=== PATIENT | female | born 1980 | race American Indian/Alaskan Native ===

== ENCOUNTER 2017-05-24 15:39 | Emergency (ER) | payer MEDICAID ==
[2017-05-24] MEDS ORDERED: KEPPRA 1,000 MG in D5W 100 ML IV ONE (16:52)
[2017-05-24] MEDS ORDERED: REGLAN IV ONE (16:52)
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
[2017-05-24 17:13] LABS: Basophils % (Auto) 0.4 % (0.0-1.8); Eosinophils % (Auto) 1.2 % (0.0-4.3); Hematocrit 32.5 % (30.3-42.9); Hemoglobin 11.1 gm/dl (10.1-14.3); Mean Corpuscular HGB Conc 34 % (30-34); Mean Corpuscular Hemoglobin 34 pg (28-32); Mean Corpuscular Volume 100 fl (79-97); Platelet Count 191 K/mm3 (140-440); Red Blood Count 3.27 M/mm3 (3.65-5.03); Red Cell Distribution Width 15.1 % (13.2-15.2)
[2017-05-24 17:19] LABS: Anion Gap 15 mmol/L; Blood Urea Nitrogen 9 mg/dL (7-17); Calcium 8.2 mg/dL (8.4-10.2); Carbon Dioxide 25 mmol/L (22-30); Chloride 101.8 mmol/L (98-107); Glucose 92 mg/dL (65-100); Potassium 3.6 mmol/L (3.6-5.0); Sodium 138 mmol/L (137-145)
[2017-05-24 17:23] LABS: Magnesium 1.7 mg/dL (1.7-2.3)
[2017-05-24] MEDS ORDERED: KEPPRA 1,000 MG/NS 0.75% 100ML 1,000 MG/100 ML BAG IV ONE (17:25)
--- NOTE | 2017-05-24 18:37 | Cat Scan Report ---
FINAL REPORT EXAM: CT HEAD/BRAIN WO CON HISTORY: sz vs syncope TECHNIQUE: CT head without contrast PRIORS: None. FINDINGS: No acute intra-axial or extra-axial hemorrhage is identified. There is no evidence of midline shift or mass effect. The ventricles and sulci are within normal limits. Mares-white matter differentiation is intact. No acute parenchymal abnormalities seen. Bony calvarium is grossly intact. Visualized portions of the mastoids and paranasal sinuses are unremarkable. IMPRESSION: Negative CT head
[2017-05-24 19:12] LABS: Urine Drugs of Abuse Note Disclamer
[2017-05-24 19:25] LABS: Bilirubin,Urine NEG (Negative); Blood,Urine SM (Negative); Ketones,Urine NEG (Negative); Leukocyte Esterase,Urine TR (Negative); Mucus,Urine FEW /HPF; Nitrite,Urine NEG (Negative); Protein,Urine <15 mg/dL mg/dL (Negative)
[2017-05-24 20:08] VITALS: BP 104/58
--- NOTE | 2017-05-25 07:51 | XRay Report ---
AP CHEST: HISTORY: Seizure, syncope AP view of the chest demonstrates a normal mediastinal and cardiac contour with clear lungs and normal bony and soft tissue structures. IMPRESSION: Unremarkable AP chest.
== END 2017-05-24 20:13 | disposition home or self-care (01) ==
LOC: ED 15:39
DX: R56.9 Unspecified convulsions (principal); F32.9 Major depressive disorder, single episode, unspecified; J45.909 Unspecified asthma, uncomplicated; D64.9 Anemia, unspecified; I10 Essential (primary) hypertension; Z72.0 Tobacco use; Z79.82 Long term (current) use of aspirin; Z88.0 Allergy status to penicillin; Z88.6 Allergy status to analgesic agent
CPT/HCPCS: 36415; 51701; 70450; 71010; 80048; 80307; 81001; 82550; 83735; 84702; 85025; 93005; 93010; 96365; 96375; 99285; G0480; J1953; J2765; 80320

== ENCOUNTER 2017-05-31 17:00 | Emergency (ER) | payer MEDICAID | END 2017-05-31 17:40 | disposition left against medical advice (07) | LOC: ED 17:00 | DX: R55 Syncope and collapse (principal); Z53.21 Procedure and treatment not carried out due to patient leaving prior to being seen by health care provider ==

== ENCOUNTER 2017-06-21 15:12 | Emergency (ER) | payer MEDICAID ==
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
[2017-06-21 16:37] LABS: Basophils % (Auto) 0.5 % (0.0-1.8); Eosinophils % (Auto) 0.6 % (0.0-4.3); Hematocrit 35.8 % (30.3-42.9); Hemoglobin 11.9 gm/dl (10.1-14.3); Mean Corpuscular HGB Conc 33 % (30-34); Mean Corpuscular Hemoglobin 33 pg (28-32); Mean Corpuscular Volume 99 fl (79-97); Platelet Count 207 K/mm3 (140-440); Red Cell Distribution Width 15.3 % (13.2-15.2); White Blood Count 3.1 K/mm3 (4.5-11.0)
[2017-06-21 16:47] LABS: INR 1.06 (0.87-1.13)
[2017-06-21 16:48] LABS: Partial Thromboplastin Time 33.2 Sec. (24.2-36.6)
[2017-06-21 17:02] LABS: Alanine Aminotransferase 19 units/L (7-56); Albumin 3.9 g/dL (3.9-5); Albumin/Globulin Ratio 0.8 %; Alkaline Phosphatase 60 units/L (35-129); Anion Gap 18 mmol/L; Blood Urea Nitrogen 8 mg/dL (7-17); Calcium 8.6 mg/dL (8.4-10.2); Carbon Dioxide 24 mmol/L (22-30); Chloride 101.8 mmol/L (98-107); Glucose 120 mg/dL (65-100); Potassium 3.1 mmol/L (3.6-5.0); Sodium 141 mmol/L (137-145); Total Protein 8.7 g/dL (6.3-8.2)
--- NOTE | 2017-06-21 17:49 | Emergency Department Report ---
ED Chest Pain HPI - General Chief Complaint: Syncope Stated Complaint: DIZZY Time Seen by Provider: 06/21/17 15:34 Source: EMS Mode of arrival: Ambulatory Limitations: No Limitations - History of Present Illness MD Complaint: chest pain -: Gradual Onset: during rest, during exertion Pain Location: substernal, right chest Pain Radiation: none Severity: mild Severity scale (0 -10): 2 Quality: tightness, aching, heaviness Consistency: intermittent Improves With: nothing Worsens With: nothing re: nausea. denies: vomting, diaphoresis, dyspnea, sense of impending doom Other Symptoms: denies: cough, fever, syncope, rash, acid taste in mouth, leg swelling, palpitations, burping Aspirin use within the Past 7 Days: (0) No - Related Data On Oral Contraceptives: No Home Medications Medication Instructions Recorded Confirmed Last Taken ALBUTEROL Inhaler [ProAir HFA 2 puff IH QID PRN 04/15/16 06/21/17 Unknown Inhaler] Previous Rx's Medication Instructions Recorded Last Taken Type levETIRAcetam [Keppra TAB] 1,000 mg PO BID #60 tab 05/24/17 06/21/17 Rx Allergies Allergy/AdvReac Type Severity Reaction Status Date / Time aspirin Allergy Hives Verified 12/18/16 11:29 ibuprofen [From Motrin] Allergy Hives Verified 05/01/16 11:00 Penicillins Allergy Hives Verified 06/20/15 11:34 Heart Score - HEART Score History: Slightly suspicious EKG: Normal Age: < 45 Risk factors: No known risk factors Troponin: < normal limit HEART Score: 0 ED Review of Systems ROS: Stated complaint: DIZZY Other details as noted in HPI Comment: All other systems reviewed and negative ED Past Medical Hx - Past Medical History Previous Medical History?: Yes Hx Hypertension: Yes Hx Diabetes: No Hx Headaches / Migraines: Yes Hx Seizures: Yes Hx Psychiatric Treatment: Yes (depression) Hx Asthma: Yes Additional medical history: Anemia - Surgical History Past Surgical History?: Yes Additional Surgical History: right knee surgery, b/l foot surgery several years ago. foot surgery 12/2015 - Social History Smoking Status: Current Every Day Smoker Substance Use Type: Prescribed - Medications Home Medications: Home Medications Medication Instructions Recorded Confirmed Last Taken Type ALBUTEROL Inhaler [ProAir HFA 2 puff IH QID PRN 04/15/16 06/21/17 Unknown History Inhaler] levETIRAcetam [Keppra TAB] 1,000 mg PO BID #60 tab 05/24/17 06/21/17 06/21/17 Rx ED Physical Exam - General Limitations: No Limitations General appearance: alert, in no apparent distress - Head Head exam: Present: atraumatic, normocephalic - Eye Eye exam: Present: normal appearance, PERRL, EOMI - ENT ENT exam: Present: normal exam, normal orophraynx, mucous membranes moist - Neck Neck exam: Present: normal inspection - Respiratory Respiratory exam: Present: normal lung sounds bilaterally. Absent: respiratory distress - Cardiovascular Cardiovascular Exam: Present: regular rate, normal rhythm. Absent: systolic murmur, diastolic murmur, rubs, gallop - GI/Abdominal GI/Abdominal exam: Present: soft, normal bowel sounds - Extremities Exam Extremities exam: Present: normal inspection - Back Exam Back exam: Present: normal inspection - Neurological Exam Neurological exam: Present: alert, oriented X3 - Psychiatric Psychiatric exam: Present: normal affect, normal mood - Skin Skin exam: Present: warm, dry, intact, normal color. Absent: rash ED Course Vital Signs 06/21/17 06/21/17 06/21/17 15:25 17:50 18:28 Temperature 98.4 F 98 F Pulse Rate 68 84 74 Respiratory 18 20 14 Rate Blood Pressure 153/113 Blood Pressure 132/84 121/73 [Left] O2 Sat by Pulse 100 100 98 Oximetry LATRICE score - Latrice Score Age > 65: (0) No Aspirin use within the Past 7 Days: (0) No 3 or more CAD Risk Factors: (0) No 2 or more Angina events in past 24 hrs: (0) No Known CAD with more than 50% Stenosis: (0) No Elevated Cardiac Markers: (0) No ST Deviation Greater than 0.5mm: (0) No LATRICE Score: 0 ED Medical Decision Making - Lab Data Result diagrams: 06/21/17 16:21 06/21/17 16:21 - EKG Data -: EKG Interpreted by Me EKG shows normal: sinus rhythm - EKG Data When compared to previous EKG there are: no significant change Interpretation: no acute changes - Radiology Data Radiology results: report reviewed, image reviewed - Medical Decision Making patient doing well, labs neg, likely dc Critical care attestation.: If time is entered above; I have spent that time in minutes in the direct care of this critically ill patient, excluding procedure time. ED Disposition Clinical Impression: Headache, Dizziness Disposition: DC-01 TO HOME OR SELFCARE Is pt being admited?: No Does the pt Need Aspirin: No Condition: Good Referrals: PRIMARY CARE, [Primary Care Provider] - 3-5 Days Time of Disposition: 19:21
--- NOTE | 2017-06-21 18:16 | Cat Scan Report ---
FINAL REPORT PROCEDURE: CT HEAD/BRAIN WO CON TECHNIQUE: Computerized tomography of the head was performed without contrast material. HISTORY: Syncope COMPARISON: Prior CT scan of the brain 05/24/2017 FINDINGS: Brain: Brain density appears normal. No evidence of intracranial hemorrhage. No parenchymal hemorrhage, mass lesions or mass effect are seen. No abnormal extraxial fluid collects or masses are seen. Ventricles: Ventricles are normal size and are midline. Bone Windows: No evidence of skull fracture. Paranasal sinuses: Clear Mastoid air cells: Clear IMPRESSION: Negative examination
[2017-06-21] MEDS ORDERED: ZOFRAN ODT ONE (18:32)
[2017-06-21] MEDS ORDERED: TORADOL ONE (18:32)
[2017-06-21] MEDS ORDERED: ULTRAM ONE (18:35)
[2017-06-21] MEDS ORDERED: ZOFRAN ODT PO ONE (18:39)
[2017-06-21] MEDS ORDERED: ULTRAM PO ONE (18:39)
[2017-06-21 20:03] VITALS: BP 113/79
--- NOTE | 2017-06-22 08:19 | XRay Report ---
CHEST 2 VIEWS INDICATION: Syncope. COMPARISON: 05/24/2017 FINDINGS: PA and lateral chest radiographs demonstrate stable cardiomediastinal silhouette without pleural effusions or CHF. Slight bibasilar crowding/prominence of lung markings, possibly atelectatic versus scarring. Slight thoracic spine degenerative spurring. CONCLUSION: No significant acute chest process or interval change, as described. Thank you for the opportunity to participate in this patient's care.
== END 2017-06-21 19:50 | disposition home or self-care (01) ==
LOC: ED 15:12
DX: R51 Headache (principal); R42 Dizziness and giddiness; I10 Essential (primary) hypertension; R56.9 Unspecified convulsions; F32.9 Major depressive disorder, single episode, unspecified; D64.9 Anemia, unspecified; F17.200 Nicotine dependence, unspecified, uncomplicated; J45.909 Unspecified asthma, uncomplicated; Z88.6 Allergy status to analgesic agent; Z88.0 Allergy status to penicillin
CPT/HCPCS: 36415; 70450; 71020; 80053; 84484; 84703; 85025; 85610; 85730; 93005; 93010; J1885; Q0162

== ENCOUNTER 2017-07-17 14:38 | Emergency (ER) | payer MEDICAID ==
[2017-07-17 15:19] VITALS: BP 135/113
[2017-07-17 16:04] LABS: Anion Gap 17 mmol/L; BUN/Creatinine Ratio 18.33; Blood Urea Nitrogen 11 mg/dL (7-17); Calcium 8.4 mg/dL (8.4-10.2); Carbon Dioxide 21 mmol/L (22-30); Chloride 104.1 mmol/L (98-107); Glucose 92 mg/dL (65-100); Potassium 3.6 mmol/L (3.6-5.0); Sodium 138 mmol/L (137-145)
[2017-07-17 16:09] LABS: Eosinophils % (Auto) 2.1 % (0.0-4.3); Hematocrit 34.4 % (30.3-42.9); Hemoglobin 11.8 gm/dl (10.1-14.3); Mean Corpuscular HGB Conc 34 % (30-34); Mean Corpuscular Hemoglobin 33 pg (28-32); Mean Corpuscular Volume 97 fl (79-97); Platelet Count 203 K/mm3 (140-440); Red Blood Count 3.54 M/mm3 (3.65-5.03); Red Cell Distribution Width 14.6 % (13.2-15.2); White Blood Count 3.8 K/mm3 (4.5-11.0)
== END 2017-07-17 19:30 | disposition left against medical advice (07) ==
LOC: ED 14:38
DX: R55 Syncope and collapse (principal); Z53.21 Procedure and treatment not carried out due to patient leaving prior to being seen by health care provider
CPT/HCPCS: 36415; 80048; 84484; 85025; 93005; 93010

== ENCOUNTER 2017-09-30 10:33 | Emergency (ER) | payer MEDICAID ==
--- NOTE | 2017-09-30 11:41 | Emergency Department Report ---
ED General Adult HPI - General Chief complaint: Back Pain/Injury Stated complaint: BACK PAIN AND SHOULDER PAIN Time Seen by Provider: 09/30/17 11:06 Source: patient Mode of arrival: Ambulatory Limitations: No Limitations - History of Present Illness Initial comments: PT c/o neck pain x 4 days. PT states she can not turn her neck. PT states the pain radiates down to her low back. PT states she is allergic to ibuprofen but she has been taking Motrin and Aleve for this with no improvement or allergic reaction. PT denies injury or trauma. Pt states she has had cough and subjective fever and chill. when reviewed PMH - pt denies HIV PT states she has PCP- Dr Pantoja, states she has had full labs in the last month PT was looked up in [facility] Database. PT has multiple fills of Percocet 10 mg and Soma. PT not forthcoming with this. PT states her neurologist had her on Soma and Percocet for her headaches but she is no longer under care due to neurologist . MD Complaint: body pain -: Gradual, days(s) Severity scale (0 -10): 10 Quality: burning, aching Consistency: constant Improves with: none Worsens with: movement Associated Symptoms: cough, fever/chills, nausea/vomiting. denies: chest pain Treatments Prior to Arrival: NSAID - Related Data Home Medications Medication Instructions Recorded Confirmed Last Taken ALBUTEROL Inhaler [ProAir HFA 2 puff IH QID PRN 04/15/16 06/23/17 06/23/17 Inhaler] Previous Rx's Medication Instructions Recorded Last Taken Type levETIRAcetam [Keppra TAB] 1,000 mg PO BID #60 tab 05/24/17 06/23/17 Rx Allergies Allergy/AdvReac Type Severity Reaction Status Date / Time aspirin Allergy Hives Verified 06/23/17 11:00 ibuprofen [From Motrin] Allergy Hives Verified 06/23/17 11:00 Penicillins Allergy Hives Verified 06/23/17 11:00 ED Review of Systems ROS: Stated complaint: BACK PAIN AND SHOULDER PAIN Other details as noted in HPI Comment: All other systems reviewed and negative Constitutional: chills, fever (subjective ), malaise ENT: denies: congestion Respiratory: cough Cardiovascular: denies: chest pain Gastrointestinal: nausea. denies: abdominal pain, vomiting Musculoskeletal: back pain, myalgia ED Past Medical Hx - Past Medical History Hx Hypertension: Yes Hx Diabetes: No Hx Headaches / Migraines: Yes Hx Seizures: Yes Hx Psychiatric Treatment: Yes (depression) Hx Asthma: Yes Hx HIV: Yes (PT denies 09-30-17 ) Additional medical history: Anemia - Surgical History Additional Surgical History: right knee surgery, b/l foot surgery several years ago. foot surgery 12/2015 - Social History Smoking Status: Current Every Day Smoker Substance Use Type: None - Medications Home Medications: Home Medications Medication Instructions Recorded Confirmed Last Taken Type ALBUTEROL Inhaler [ProAir HFA 2 puff IH QID PRN 04/15/16 06/23/17 06/23/17 History Inhaler] levETIRAcetam [Keppra TAB] 1,000 mg PO BID #60 tab 05/24/17 06/23/17 06/23/17 Rx ED Physical Exam - General Limitations: No Limitations General appearance: alert, in no apparent distress - Head Head exam: Present: atraumatic, normocephalic, normal inspection - Eye Eye exam: Present: normal appearance, PERRL, EOMI - ENT ENT exam: Present: normal orophraynx, mucous membranes moist, normal external ear exam, other - Neck Neck exam: Present: normal inspection, full ROM, other (decreased lateral rotation ). Absent: lymphadenopathy - Respiratory Respiratory exam: Present: normal lung sounds bilaterally, respiratory distress. Absent: wheezes, rales, rhonchi, chest wall tenderness - Cardiovascular Cardiovascular Exam: Present: regular rate, normal rhythm, normal heart sounds - GI/Abdominal GI/Abdominal exam: Present: soft. Absent: tenderness, guarding, rebound - Extremities Exam Extremities exam: Present: normal inspection, full ROM - Back Exam Back exam: Present: normal inspection, full ROM, tenderness, muscle spasm, paraspinal tenderness, other (pt reports back tenderness from nape of neck to lumbar spine ). Absent: CVA tenderness (R), CVA tenderness (L), vertebral tenderness - Neurological Exam Neurological exam: Present: alert, oriented X3, normal gait - Psychiatric Psychiatric exam: Present: normal affect, normal mood - Skin Skin exam: Present: warm, dry, intact, normal color ED Course Vital Signs 09/30/17 09/30/17 10:42 14:55 Temperature 98.2 F 98.6 F Pulse Rate 98 H 87 Respiratory 18 16 Rate Blood Pressure 98/53 Blood Pressure 91/43 [Right] O2 Sat by Pulse 98 100 Oximetry - Reevaluation(s) Reevaluation #1: 09/30/17 11:51 PT not in room. Reevaluation #2: 09/30/17 16:26 Pt's lab work compete at this time. Told by nursing staff that pt eloped. - Pulse Oximetry Interpretation Digit-Finger Initial Pulse Oximetry Readin Actions Taken: none ED Medical Decision Making - Lab Data Result diagrams: 09/30/17 11:54 09/30/17 11:54 Labs 09/30/17 09/30/17 09/30/17 11:54 11:54 11:54 WBC 3.8 L RBC 3.01 L Hgb 10.3 Hct 30.3 MCV 101 H MCH 34 H MCHC 34 RDW 15.4 H Plt Count 163 Lymph % (Auto) 21.5 [place] % (Auto) 14.5 H Eos % (Auto) 2.3 Baso % (Auto) 0.6 Lymph # 0.8 L [place] # 0.5 Eos # 0.1 Baso # 0.0 Seg Neutrophils % 61.1 Seg Neutrophils # 2.3 Sodium 136 L Potassium 4.6 Chloride 104.7 Carbon Dioxide 20 L Anion Gap 16 BUN 27 H Creatinine 1.1 Estimated GFR > 60 BUN/Creatinine Ratio 25 Glucose 86 Calcium 7.7 L Total Bilirubin 0.60 AST 24 ALT 21 Alkaline Phosphatase 73 Total Creatine Kinase Total Protein 7.7 Albumin 3.7 L Albumin/Globulin Ratio 0.9 HCG, Qual Negative Urine Color Urine Turbidity Urine pH Ur Specific [place] Urine Protein Urine Glucose (UA) Urine Ketones Urine Blood Urine Nitrite Urine Bilirubin Urine Urobilinogen Ur Leukocyte Esterase Urine WBC (Auto) Urine RBC (Auto) U Epithel Cells (Auto) Urine Bacteria (Auto) 09/30/17 09/30/17 12:00 15:26 WBC RBC Hgb Hct MCV MCH MCHC RDW Plt Count Lymph % (Auto) [place] % (Auto) Eos % (Auto) Baso % (Auto) Lymph # [place] # Eos # Baso # Seg Neutrophils % Seg Neutrophils # Sodium Potassium Chloride Carbon Dioxide Anion Gap BUN Creatinine Estimated GFR BUN/Creatinine Ratio Glucose Calcium Total Bilirubin AST ALT Alkaline Phosphatase Total Creatine Kinase 215 H Total Protein Albumin Albumin/Globulin Ratio HCG, Qual Urine Color Yellow Urine Turbidity Clear Urine pH 5.0 Ur Specific [place] 1.012 Urine Protein <15 mg/dl Urine Glucose (UA) Neg Urine Ketones Neg Urine Blood Neg Urine Nitrite Neg Urine Bilirubin Neg Urine Urobilinogen 2.0 Ur Leukocyte Esterase Neg Urine WBC (Auto) 2.0 Urine RBC (Auto) 1.0 U Epithel Cells (Auto) 3.0 Urine Bacteria (Auto) 1+ - Differential Diagnosis rhabo, hypokalemia, uri, uti, Critical Care Time: No Critical care attestation.: If time is entered above; I have spent that time in minutes in the direct care of this critically ill patient, excluding procedure time. ED Disposition Clinical Impression: Myalgia Disposition: [facility] Is pt being admited?: No Does the pt Need Aspirin: No Condition: Stable Referrals: PRIMARY CARE, [Primary Care Provider] - 3-5 Days Time of Disposition: 16:29
[2017-09-30 12:10] LABS: Basophils % (Auto) 0.6 % (0.0-1.8); Eosinophils % (Auto) 2.3 % (0.0-4.3); Hematocrit 30.3 % (30.3-42.9); Hemoglobin 10.3 gm/dl (10.1-14.3); Mean Corpuscular HGB Conc 34 % (30-34); Mean Corpuscular Hemoglobin 34 pg (28-32); Mean Corpuscular Volume 101 fl (79-97); Platelet Count 163 K/mm3 (140-440); Red Blood Count 3.01 M/mm3 (3.65-5.03); Red Cell Distribution Width 15.4 % (13.2-15.2); White Blood Count 3.8 K/mm3 (4.5-11.0)
[2017-09-30 12:26] LABS: Alanine Aminotransferase 21 units/L (7-56); Albumin 3.7 g/dL (3.9-5); Albumin/Globulin Ratio 0.9 %; Alkaline Phosphatase 73 units/L (35-129); Anion Gap 16 mmol/L; BUN/Creatinine Ratio 25; Blood Urea Nitrogen 27 mg/dL (7-17); Calcium 7.7 mg/dL (8.4-10.2); Carbon Dioxide 20 mmol/L (22-30); Chloride 104.7 mmol/L (98-107); Glucose 86 mg/dL (65-100); Potassium 4.6 mmol/L (3.6-5.0); Sodium 136 mmol/L (137-145); Total Protein 7.7 g/dL (6.3-8.2)
[2017-09-30 14:58] VITALS: BP 91/43
[2017-09-30 15:54] LABS: Bacteria,Urine 1+ /HPF (Negative); Bilirubin,Urine NEG (Negative); Blood,Urine NEG (Negative); Ketones,Urine NEG (Negative); Leukocyte Esterase,Urine NEG (Negative); Nitrite,Urine NEG (Negative); Protein,Urine <15 mg/dL mg/dL (Negative)
== END 2017-09-30 16:24 | disposition left against medical advice (07) ==
LOC: ED 10:33
DX: R05 Cough (principal); R11.2 Nausea with vomiting, unspecified; M79.1 Myalgia; I10 Essential (primary) hypertension; G43.909 Migraine, unspecified, not intractable, without status migrainosus; F17.200 Nicotine dependence, unspecified, uncomplicated; Z88.6 Allergy status to analgesic agent; Z88.0 Allergy status to penicillin
CPT/HCPCS: 36415; 80053; 81001; 82550; 84703; 85025; 99283

== ENCOUNTER 2017-10-13 12:20 | Emergency (ER) | payer MEDICAID ==
[2017-10-13] MEDS ORDERED: NITROSTAT SL ONE (12:53)
--- NOTE | 2017-10-13 12:53 | Emergency Department Report ---
Chief Complaint: Chest Pain Stated Complaint: CP Time Seen by Provider: 10/13/17 12:50 - HPI History of Present Illness: Patient is a 37-year-old [place] female who has a history of hypertension morbidly obese was presenting with chest pain. Patient states for the past 3 days she has been having chest pressure center chest with radiation to left arm. This pain was coming and going, initially but has been present constantly since this morning. Patient arrived via ambulance. The patient's EKG was reviewed here or Department does not show a STEMI however patient is having pain that is worrisome. Patient states that she has shortness of breath accompanying her chest pain. Denies any cough nausea vomiting diarrhea at this time. Patient states that she has no history of smoking diabetes. Patient has not seen a health care specialist in the last several years. - Exam Vital Signs: Vital Signs 10/13/17 12:25 Temperature 99.3 F Pulse Rate 99 H Respiratory 16 Rate Blood Pressure 138/89 O2 Sat by Pulse 99 Oximetry Physical Exam: Focused physical exam patient's heart mildly tachycardic S1-S2 no murmurs gallops or rubs lungs clear to auscultation bilaterally abdomen is soft nontender obese with normal bowel sounds general exam patient is alert and oriented in no acute distress MSE screening note: Focused history and physical exam performed. Due to findings the following was ordered: ED cardiac order set has been ordered we omitted aspirin as she is allergic to this medication. Patient moved to the main ED for further care ED Disposition for MSE Condition: Stable Referrals: PERLITA CHOW MD [Primary Care Provider] - 3-5 Days
[2017-10-13] MEDS ORDERED: XOPENEX IH ONE (13:12)
[2017-10-13] MEDS ORDERED: ATROVENT IH ONE (13:12)
--- NOTE | 2017-10-13 13:17 | Emergency Department Report ---
ED Chest Pain HPI - General Chief Complaint: Chest Pain Stated Complaint: CP Time Seen by Provider: 10/13/17 12:50 Source: patient Mode of arrival: Stretcher Limitations: No Limitations - History of Present Illness Initial Comments: Patient is 37 years old female morbidly obese history of hypertension, asthma and bipolar disorder presented to the ER with left-sided chest pain for the last 3 days on and off associated with shortness of breath. Patient denied any nausea or vomiting, no fever. Patient was admitted here recently for chest pain , stress test was completely negative. MD Complaint: chest pain -: days(s) Onset: during rest, during exertion Pain Location: left chest Severity scale (0 -10): 10 Quality: tightness, pressure - Related Data Home Medications Medication Instructions Recorded Confirmed Last Taken ALBUTEROL Inhaler [ProAir HFA 2 puff IH QID PRN 04/15/16 06/23/17 06/23/17 Inhaler] Previous Rx's Medication Instructions Recorded Last Taken Type levETIRAcetam [Keppra TAB] 1,000 mg PO BID #60 tab 05/24/17 06/23/17 Rx Ondansetron [Zofran Odt] 4 mg PO Q8HR PRN #14 tab.rapdis 10/13/17 Unknown Rx Prednisone [predniSONE 10 mg 10 mg PO .TAPER #1 tab.ds.pk 10/13/17 Unknown Rx (6-Day Pack, 21 Tabs)] traMADol [Ultram] 50 mg PO Q6HR PRN #14 tablet 10/13/17 Unknown Rx Allergies Allergy/AdvReac Type Severity Reaction Status Date / Time aspirin Allergy Hives Verified 06/23/17 11:00 ibuprofen [From Motrin] Allergy Hives Verified 06/23/17 11:00 Penicillins Allergy Hives Verified 06/23/17 11:00 Heart Score - HEART Score History: Moderately suspicious EKG: Normal Age: < 45 Risk factors: 1-2 risk factors Troponin: < normal limit HEART Score: 2 - Critical Actions Critical Actions: 0-3 pts:0.9-1.7%risk of adverse cardiac event.Candidate for discharge ED Review of Systems ROS: Stated complaint: CP Other details as noted in HPI Comment: All other systems reviewed and negative Constitutional: denies: chills, fever Respiratory: shortness of breath, SOB with exertion, SOB at rest. denies: cough Cardiovascular: chest pain, dyspnea on exertion. denies: palpitations Gastrointestinal: denies: abdominal pain, nausea, vomiting, diarrhea, constipation, hematemesis Neurological: denies: headache, weakness, numbness, paresthesias ED Past Medical Hx - Past Medical History Hx Hypertension: Yes Hx Diabetes: No Hx Headaches / Migraines: Yes Hx Seizures: Yes Hx Psychiatric Treatment: Yes (depression) Hx Asthma: Yes Hx HIV: Yes (PT denies 09-30-17 ) Additional medical history: Anemia - Surgical History Additional Surgical History: right knee surgery, b/l foot surgery several years ago. foot surgery 12/2015 - Social History Smoking Status: Never Smoker Substance Use Type: None - Medications Home Medications: Home Medications Medication Instructions Recorded Confirmed Last Taken Type ALBUTEROL Inhaler [ProAir HFA 2 puff IH QID PRN 04/15/16 06/23/17 06/23/17 History Inhaler] levETIRAcetam [Keppra TAB] 1,000 mg PO BID #60 tab 05/24/17 06/23/17 06/23/17 Rx Ondansetron [Zofran Odt] 4 mg PO Q8HR PRN #14 tab.rapdis 10/13/17 Unknown Rx Prednisone [predniSONE 10 mg 10 mg PO .TAPER #1 tab.ds.pk 10/13/17 Unknown Rx (6-Day Pack, 21 Tabs)] traMADol [Ultram] 50 mg PO Q6HR PRN #14 tablet 10/13/17 Unknown Rx ED Physical Exam - General Limitations: No Limitations General appearance: alert, in no apparent distress - Head Head exam: Present: atraumatic, normocephalic, normal inspection - ENT ENT exam: Present: normal exam - Respiratory Respiratory exam: Present: wheezes, rhonchi, decreased breath sounds, prolonged expiratory. Absent: respiratory distress, rales, stridor, chest wall tenderness , accessory muscle use - Cardiovascular Cardiovascular Exam: Present: regular rate, normal rhythm, normal heart sounds - GI/Abdominal GI/Abdominal exam: Present: soft, normal bowel sounds. Absent: distended, tenderness, guarding, rebound, rigid, organomegaly, mass, bruit, pulsatile mass , hernia - Extremities Exam Extremities exam: Present: normal inspection, full ROM, normal capillary refill - Back Exam Back exam: Present: normal inspection. Absent: tenderness, CVA tenderness (R), CVA tenderness (L) - Neurological Exam Neurological exam: Present: alert, oriented X3, CN II-XII intact, normal gait, reflexes normal - Skin Skin exam: Present: warm, intact, normal color. Absent: cyanosis, diaphoretic, erythema, urticaria ED Course Vital Signs 10/13/17 10/13/17 10/13/17 12:25 13:10 13:30 Temperature 99.3 F 100.3 F H Pulse Rate 99 H 99 H Pulse Rate [ 100 H Bilateral Upper Lobe] Respiratory 16 11 L Rate Respiratory 20 Rate [Bilateral Upper Lobe] Blood Pressure 138/89 Blood Pressure 151/86 [Right] O2 Sat by Pulse 99 97 Oximetry 10/13/17 13:41 Temperature Pulse Rate Pulse Rate [ 102 H Bilateral Upper Lobe] Respiratory 15 Rate Respiratory 18 Rate [Bilateral Upper Lobe] Blood Pressure Blood Pressure [Right] O2 Sat by Pulse 97 Oximetry - Reevaluation(s) Reevaluation #1: 10/13/17 17:03 Patient stated that she is feeling better. On exam no wheezing. I informed the patient about her CT chest results and the possibility of sarcoidosis, I gave her a printout and advised her to follow-up with his doctor Derrick our psychopaedic nurse telephone surveyor. RANDY score - Randy Score Age > 65: (0) No Aspirin use within the Past 7 Days: (0) No 3 or more CAD Risk Factors: (0) No 2 or more Angina events in past 24 hrs: (1) Yes Known CAD with more than 50% Stenosis: (0) No Elevated Cardiac Markers: (0) No ST Deviation Greater than 0.5mm: (0) No RANDY Score: 1 ED Medical Decision Making - Lab Data Result diagrams: 10/13/17 13:00 10/13/17 13:00 - EKG Data -: EKG Interpreted by Or EKG shows normal: sinus rhythm Rate: tachycardia - EKG Data Interpretation: no acute changes - Radiology Data Radiology results: report reviewed Referring Physician: CHALINO MORALEZ Patient Name: RAÚL NOGUEIRA Date of : 1980 Sex: Female Report Date: 2017-10-13 Report Status: Finalized Findings [facility] [address] [place] [address] Cat Scan Report Signed Patient: RAÚL NOGUEIRA MR#: [id number] : 1980 Acct:[id number] Age/Sex: 37 / F ADM Date: 10/13/17 Loc: ED Attending Dr: Ordering Physician: CHALINO MORALEZ Date of Service: 10/13/17 Procedure(s): CT angio chest Accession Number(s): [id number] cc: CHALINO MORALEZ FINAL REPORT EXAM: CT ANGIO CHEST HISTORY: CHEST PAIN WITH SOB TECHNIQUE: CT chest CT angiogram with reconstructions PRIORS: None. FINDINGS: There is no evidence of filling defect within the central pulmonary vasculature to suggest the presence of acute pulmonary embolus. There is bilateral hilar lymphatic prominence. There is a prominent sub carinal lymph node measuring 1.6 x 1.4 centimeters. There are some prominent axillary lymph nodes seen bilaterally measuring up to 2.9 x 1.9 centimeters.. There is a pretracheal node measuring 1.7 x 1.0 centimeters Heart and great vessels are unremarkable. The aorta is normal in caliber. No focal pulmonary infiltrate identified. There is a small left pleural effusion present. .No acute pulmonary abnormality noted. Spleen is enlarged measuring 7.9 x 1.6 centimeters. Liver appears enlarged. IMPRESSION: Mild mediastinal adenopathy as well as hilar lymphatic enlargement bilaterally There is small left pleural effusion. Splenomegaly and hepatomegaly Findings are nonspecific however sarcoidosis is a significant diagnostic consideration. No CT evidence of acute pulmonary embolus Transcribed By: [facility], [facility] Dictated By: GAIL FULLER MD Electronically Authenticated By: GAIL FULLER MD Signed Date/Time: 10/13/17 124 DD/ 1241 TD/TT: 10/13/17 124 Critical care attestation.: If time is entered above; I have spent that time in minutes in the direct care of this critically ill patient, excluding procedure time. ED Disposition Clinical Impression: Chest pain, Shortness of breath Disposition: DC-01 TO HOME OR SELFCARE Is pt being admited?: No Condition: Stable Instructions: Chest Pain (ED), Sarcoidosis (ED) Referrals: KAVIN MCCLELLAN MD [Staff Physician] - 3-5 Days
[2017-10-13 13:36] LABS: Basophils % (Auto) 0.4 % (0.0-1.8); Eosinophils % (Auto) 0.9 % (0.0-4.3); Hematocrit 28.4 % (30.3-42.9); Hemoglobin 9.4 gm/dl (10.1-14.3); Mean Corpuscular HGB Conc 33 % (30-34); Mean Corpuscular Hemoglobin 33 pg (28-32); Mean Corpuscular Volume 100 fl (79-97); Platelet Count 206 K/mm3 (140-440); Red Blood Count 2.84 M/mm3 (3.65-5.03); Red Cell Distribution Width 15.4 % (13.2-15.2)
[2017-10-13 13:48] LABS: Alanine Aminotransferase 17 units/L (7-56); Albumin 3.5 g/dL (3.9-5); Albumin/Globulin Ratio 0.8 %; Alkaline Phosphatase 53 units/L (35-129); Anion Gap 16 mmol/L; BUN/Creatinine Ratio 12; Blood Urea Nitrogen 6 mg/dL (7-17); Calcium 7.9 mg/dL (8.4-10.2); Carbon Dioxide 24 mmol/L (22-30); Chloride 101.8 mmol/L (98-107); Glucose 98 mg/dL (65-100); Potassium 3.9 mmol/L (3.6-5.0); Sodium 138 mmol/L (137-145); Total Protein 7.7 g/dL (6.3-8.2)
[2017-10-13] MEDS ORDERED: ZOFRAN IV ONE (13:58)
[2017-10-13] MEDS ORDERED: MORPHINE IV ONE ×2 (13:58→17:08)
[2017-10-13 14:03] LABS: INR 1.05 (0.87-1.13)
[2017-10-13 14:04] LABS: Partial Thromboplastin Time 36.3 Sec. (24.2-36.6)
--- NOTE | 2017-10-13 15:21 | XRay Report ---
ROUTINE CHEST, TWO VIEWS: HISTORY: chest pain. The trachea, heart, mediastinal contour, lung byrd and bony thorax are unremarkable. No significant change since 06/23/17. IMPRESSION: Unremarkable chest x-ray.
--- NOTE | 2017-10-13 16:44 | Cat Scan Report ---
FINAL REPORT EXAM: CT ANGIO CHEST HISTORY: CHEST PAIN WITH SOB TECHNIQUE: CT chest CT angiogram with reconstructions PRIORS: None. FINDINGS: There is no evidence of filling defect within the central pulmonary vasculature to suggest the presence of acute pulmonary embolus. There is bilateral hilar lymphatic prominence. There is a prominent sub carinal lymph node measuring 1.6 x 1.4 centimeters. There are some prominent axillary lymph nodes seen bilaterally measuring up to 2.9 x 1.9 centimeters.. There is a pretracheal node measuring 1.7 x 1.0 centimeters Heart and great vessels are unremarkable. The aorta is normal in caliber. No focal pulmonary infiltrate identified. There is a small left pleural effusion present. .No acute pulmonary abnormality noted. Spleen is enlarged measuring 7.9 x 1.6 centimeters. Liver appears enlarged. IMPRESSION: Mild mediastinal adenopathy as well as hilar lymphatic enlargement bilaterally There is small left pleural effusion. Splenomegaly and hepatomegaly Findings are nonspecific however sarcoidosis is a significant diagnostic consideration. No CT evidence of acute pulmonary embolus
[2017-10-13 17:27] VITALS: BP 134/77
== END 2017-10-13 17:39 | disposition home or self-care (01) ==
LOC: ED 12:20
DX: R07.89 Other chest pain (principal); R06.02 Shortness of breath; I10 Essential (primary) hypertension; J45.909 Unspecified asthma, uncomplicated; F31.9 Bipolar disorder, unspecified; G43.909 Migraine, unspecified, not intractable, without status migrainosus; Z88.0 Allergy status to penicillin; Z88.6 Allergy status to analgesic agent
CPT/HCPCS: 36415; 71020; 71275; 80053; 84484; 84703; 85025; 85379; 85610; 85730; 94640; 96374; 96375; 99285; J2270; J2405; J2930; Q9967

== ENCOUNTER 2017-11-11 08:07 | Outpatient (CLI) | payer MEDICAID | END 2017-11-11 08:08 | disposition home or self-care (01) | LOC: VAS 08:07 | PROVIDERS: ATTEND Family Medicine | DX: M79.604 Pain in right leg (principal); M79.89 Other specified soft tissue disorders; R22.41 Localized swelling, mass and lump, right lower limb ==

== ENCOUNTER 2017-12-08 11:22 | Emergency (ER) | payer MEDICAID ==
[2017-12-08] MEDS ORDERED: ATROVENT IH ONE (13:06)
[2017-12-08] MEDS ORDERED: PROVENTIL IH ONE (13:06)
--- NOTE | 2017-12-08 13:06 | Emergency Department Report ---
Blank Doc - Documentation Documentation: Patient is a 37-year-old female with past medical history asthma who is been having cough cold congestion and increased wheezing for the past 3 days. Patient states that her albuterol inhaler is not helping. Patient also has body aches as well has some is nausea and vomiting. Patient will be given hour-long neb treatment with 10 of albuterol and one of Atrovent and Solu-Medrol IV fluids. Chest x-ray will be done as well. Patient will be reassessed by MLP
[2017-12-08 13:33] LABS: Basophils % (Auto) 0.2 % (0.0-1.8); Eosinophils % (Auto) 0.7 % (0.0-4.3); Hematocrit 26.1 % (30.3-42.9); Hemoglobin 8.7 gm/dl (10.1-14.3); Lymphocytes # (Auto) 0.6 K/mm3 (1.2-5.4); Lymphocytes % (Auto) 12.7 % (13.4-35.0); Mean Corpuscular HGB Conc 34 % (30-34); Mean Corpuscular Hemoglobin 34 pg (28-32); Mean Corpuscular Volume 102 fl (79-97); Monocytes # (Auto) 0.4 K/mm3 (0.0-0.8); Platelet Count 208 K/mm3 (140-440); Red Blood Count 2.55 M/mm3 (3.65-5.03); Red Cell Distribution Width 18.2 % (13.2-15.2)
[2017-12-08 13:44] LABS: BUN/Creatinine Ratio 12; Blood Urea Nitrogen 6 mg/dL (7-17); Calcium 7.9 mg/dL (8.4-10.2); Hemolysis Index 23
--- NOTE | 2017-12-08 14:21 | XRay Report ---
PA and lateral chest: Cough. The cardiac contour is slightly prominent in size. There is mild vascular congestion. No pulmonary edema and no effusion. The lungs are clear of any focal infiltrate. Compared to prior examination on October 13, 2017 the vessels appear somewhat more congested. Impression: The findings are consistent with mild CHF.
--- NOTE | 2017-12-08 15:46 | Emergency Department Report ---
ED Asthma HPI - General Chief Complaint: Adult Asthma Stated Complaint: MÓNICA Time Seen by Provider: 12/08/17 13:05 Source: patient, family, EMS Mode of arrival: Ambulatory Limitations: No Limitations - History of Present Illness Initial Comments: Patient is a 37-year-old female with past medical history asthma who is been having cough cold congestion and increased wheezing for the past 3 days. Patient states that her albuterol inhaler is not helping. Patient also has body aches as well has some is nausea and vomiting. Patient says she went to her primary care office today and was sent for complaining of difficulty breathing with history of asthma. She states she received a new nebulizer machine from PCP and she also said that her primary care didn't do anything for her and she wants to find a new primary care doctor. She denies any fever or chills. Reports coughing and wheezing and and tightness to her chest that is similar to her asthma. She had asthma attack 6 months ago. She said that she has never been intubated for asthma and her asthma started in her adult years. Patient with asthma, headaches and migraine. Patient reports pain only with wheezing and feels tight. She has a history of HIV. Patient was screened by Dr. Leahy medical directive. Patient also history of seizure, depression, anemia but she says she is not taking her iron pills and she does no not know why.. She says she wants a refill on her albuterol nebulizer and she takes albuterol inhaler and other medication for her asthma. Complaint: "asthma attack", shortness of breath, wheezing Onset/Timin -: days(s) Asthma History: adult onset, history of prior ED visit Severity: moderate, similar to prior Context: recent URI Associated Symptoms: dry cough, chest pain (chest tightness). denies: fever, hemoptysis, leg edema, syncope Treatments Prior to Arrival: inhaled bronchodilator - Related Data Current Asthma Therapy: inhaled bronchodilator Home Medications Medication Instructions Recorded Confirmed Last Taken ALBUTEROL Inhaler [ProAir HFA 2 puff IH QID PRN 04/15/16 06/23/17 06/23/17 Inhaler] Previous Rx's Medication Instructions Recorded Last Taken Type levETIRAcetam [Keppra TAB] 1,000 mg PO BID #60 tab 05/24/17 06/23/17 Rx Azithromycin [Zithromax Z-LAZ] 250 mg PO DAILY 1 Days tab 10/13/17 Unknown Rx Ondansetron [Zofran Odt] 4 mg PO Q8HR PRN #14 tab.rapdis 10/13/17 Unknown Rx Prednisone [predniSONE 10 mg 10 mg PO .TAPER #1 tab.ds.pk 10/13/17 Unknown Rx (6-Day Pack, 21 Tabs)] ALBUTEROL NEB's [Proventil 0.083% 2.5 mg IH Q4-6H 30 Days nebu 12/08/17 Unknown Rx NEBS] Cetirizine HCl [ZyrTEC] 10 mg PO QDAY 10 Days #10 capsule 12/08/17 Unknown Rx Docusate Sodium [Colace] 100 mg PO TID 30 Days #90 capsule 12/08/17 Unknown Rx Ferrous Sulfate [Feosol 325 MG tab] 325 mg PO TID 30 Days #90 tablet 12/08/17 Unknown Rx Fluticasone [Flonase] 1 spray NS QDAY 1 Days #1 bottle 12/08/17 Unknown Rx Levofloxacin [Levaquin] 750 mg PO QDAY 10 Days #10 tablet 12/08/17 Unknown Rx Magnesium Oxide [Mag-Ox] 400 mg PO QDAY 2 Days #2 tablet 12/08/17 Unknown Rx Potassium Chloride [K-Dur] 20 meq PO BID 2 Days #4 tab 12/08/17 Unknown Rx predniSONE [Deltasone] 20 mg PO QDAY 5 Days #5 tab 12/08/17 Unknown Rx traMADol [Ultram 50 MG tab] 50 mg PO Q6HR PRN #14 tablet 12/08/17 Unknown Rx Allergies Allergy/AdvReac Type Severity Reaction Status Date / Time aspirin Allergy Hives Verified 06/23/17 11:00 ibuprofen [From Motrin] Allergy Hives Verified 06/23/17 11:00 Penicillins Allergy Hives Verified 06/23/17 11:00 ED Review of Systems ROS: Stated complaint: MÓNICA Other details as noted in HPI Comment: All other systems reviewed and negative Constitutional: denies: chills, fever ENT: congestion. denies: ear pain, throat pain, dental pain, hearing loss, epistaxis Respiratory: cough, shortness of breath, SOB with exertion, wheezing. denies: orthopnea, SOB at rest, stridor Cardiovascular: chest pain (chest tightness). denies: palpitations, dyspnea on exertion, orthopnea, edema, syncope, paroxysmal nocturnal dyspnea Gastrointestinal: denies: abdominal pain, nausea, vomiting, diarrhea, constipation, hematemesis, melena, hematochezia Genitourinary: denies: urgency, dysuria, frequency, hematuria, discharge Musculoskeletal: denies: back pain, joint swelling, arthralgia, myalgia Skin: denies: rash Neurological: denies: headache, weakness, numbness, paresthesias, confusion, abnormal gait, vertigo ED Past Medical Hx - Past Medical History Previous Medical History?: Yes Hx Hypertension: Yes Hx Diabetes: No Hx Headaches / Migraines: Yes Hx Seizures: Yes Hx Psychiatric Treatment: Yes (depression) Hx Asthma: Yes Hx HIV: Yes Additional medical history: Anemia - Surgical History Past Surgical History?: Yes Additional Surgical History: right knee surgery, b/l foot surgery several years ago. foot surgery 12/2015 - Family History Family history: hypertension - Social History Smoking Status: Former Smoker Substance Use Type: Prescribed - Medications Home Medications: Home Medications Medication Instructions Recorded Confirmed Last Taken Type ALBUTEROL Inhaler [ProAir HFA 2 puff IH QID PRN 04/15/16 06/23/17 06/23/17 History Inhaler] levETIRAcetam [Keppra TAB] 1,000 mg PO BID #60 tab 05/24/17 06/23/17 06/23/17 Rx Azithromycin [Zithromax Z-LAZ] 250 mg PO DAILY 1 Days tab 10/13/17 Unknown Rx Ondansetron [Zofran Odt] 4 mg PO Q8HR PRN #14 tab.rapdis 10/13/17 Unknown Rx Prednisone [predniSONE 10 mg 10 mg PO .TAPER #1 tab.ds.pk 10/13/17 Unknown Rx (6-Day Pack, 21 Tabs)] ALBUTEROL NEB's [Proventil 0.083% 2.5 mg IH Q4-6H 30 Days nebu 12/08/17 Unknown Rx NEBS] Cetirizine HCl [ZyrTEC] 10 mg PO QDAY 10 Days #10 capsule 12/08/17 Unknown Rx Docusate Sodium [Colace] 100 mg PO TID 30 Days #90 capsule 12/08/17 Unknown Rx Ferrous Sulfate [Feosol 325 MG tab] 325 mg PO TID 30 Days #90 tablet 12/08/17 Unknown Rx Fluticasone [Flonase] 1 spray NS QDAY 1 Days #1 bottle 12/08/17 Unknown Rx Levofloxacin [Levaquin] 750 mg PO QDAY 10 Days #10 tablet 12/08/17 Unknown Rx Magnesium Oxide [Mag-Ox] 400 mg PO QDAY 2 Days #2 tablet 12/08/17 Unknown Rx Potassium Chloride [K-Dur] 20 meq PO BID 2 Days #4 tab 12/08/17 Unknown Rx predniSONE [Deltasone] 20 mg PO QDAY 5 Days #5 tab 12/08/17 Unknown Rx traMADol [Ultram 50 MG tab] 50 mg PO Q6HR PRN #14 tablet 12/08/17 Unknown Rx ED Physical Exam - General Limitations: No Limitations General appearance: alert, in no apparent distress - Head Head exam: Present: atraumatic, normocephalic, normal inspection, other (to give it to be "very) - Eye Eye exam: Present: normal appearance, PERRL, EOMI. Absent: scleral icterus, conjunctival injection, periorbital swelling Pupils: Present: normal accommodation - ENT ENT exam: Present: normal orophraynx, mucous membranes moist, normal external ear exam, other (bilateral nasal mucosa congested without erythema). Absent: TM 's normal bilaterally (bilateral TM congested) - Neck Neck exam: Present: normal inspection, full ROM, other (no C-spine tenderness). Absent: tenderness, meningismus, lymphadenopathy, thyromegaly - Respiratory Respiratory exam: Present: wheezes, other (dry cough. Mild increased work of breathing). Absent: normal lung sounds bilaterally, respiratory distress, rales , rhonchi, stridor, chest wall tenderness, accessory muscle use, decreased breath sounds, prolonged expiratory - Cardiovascular Cardiovascular Exam: Present: normal rhythm, tachycardia, normal heart sounds. Absent: systolic murmur, diastolic murmur - GI/Abdominal GI/Abdominal exam: Present: soft, normal bowel sounds. Absent: distended, tenderness, guarding, rebound, rigid, organomegaly, mass, bruit, pulsatile mass , hernia - Extremities Exam Extremities exam: Present: normal inspection, full ROM, normal capillary refill , other (no clubbing, cyanosis or edema. +2 pulses all extremities and no neurovascular compromise). Absent: tenderness, pedal edema, joint swelling, calf tenderness - Back Exam Back exam: Present: normal inspection, full ROM, other (ablated and a difficulties). Absent: tenderness, CVA tenderness (R), CVA tenderness (L), muscle spasm, paraspinal tenderness, vertebral tenderness, rash noted - Neurological Exam Neurological exam: Present: alert, oriented X3, normal gait, reflexes normal. Absent: motor sensory deficit - Psychiatric Psychiatric exam: Present: normal affect, normal mood - Skin Skin exam: Present: warm, dry, intact, normal color. Absent: rash ED Course Vital Signs 12/08/17 12/08/17 12/08/17 12:06 13:32 14:50 Temperature 99.2 F Pulse Rate 116 H Pulse Rate [ 115 H 117 H Posterior Bilateral Throughout] Respiratory 22 Rate Respiratory 20 20 Rate [Posterior Bilateral Throughout] Blood Pressure 161/82 Blood Pressure [Left] O2 Sat by Pulse 96 Oximetry 12/08/17 12/08/17 12/08/17 16:13 16:21 16:45 Temperature Pulse Rate 116 H Pulse Rate [ 115 H 110 H Posterior Bilateral Throughout] Respiratory Rate Respiratory 20 18 Rate [Posterior Bilateral Throughout] Blood Pressure 154/82 Blood Pressure [Left] O2 Sat by Pulse 95 Oximetry 12/08/17 17:44 Temperature 99.1 F Pulse Rate 106 H Pulse Rate [ Posterior Bilateral Throughout] Respiratory 14 Rate Respiratory Rate [Posterior Bilateral Throughout] Blood Pressure Blood Pressure 135/71 [Left] O2 Sat by Pulse 92 Oximetry - Reevaluation(s) Reevaluation #1: 12/08/17 14:03 Patient here for asthma exacerbation. She was given DuoNeb 1 in triage along with Solu-Medrol 125 mg IV. Patient still with some wheezing and that she had some tightness. Reevaluation #2: 12/08/17 19:04 Patient magnesium was 1.5 which was low potassium is slightly low at 3.2 patient repleted with 40 mg of potassium. She was given Xopenex 1.25 mg and magnesium 2 g IV and patient voice that she is feeling a lot better. Patient will chronic anemia with H&H low says that she is supposed to be on iron pill but she doesn't take it and she doesn't know why. Vital signs are better and patient feeling better. ED Medical Decision Making - Lab Data Result diagrams: 12/08/17 13:14 12/08/17 13:14 Vital Signs 12/08/17 12/08/17 12/08/17 12:06 13:32 14:50 Temperature 99.2 F Pulse Rate 116 H Pulse Rate [ 115 H 117 H Posterior Bilateral Throughout] Respiratory 22 Rate Respiratory 20 20 Rate [Posterior Bilateral Throughout] Blood Pressure 161/82 Blood Pressure [Left] O2 Sat by Pulse 96 Oximetry 12/08/17 12/08/17 12/08/17 16:13 16:21 16:45 Temperature Pulse Rate 116 H Pulse Rate [ 115 H 110 H Posterior Bilateral Throughout] Respiratory Rate Respiratory 20 18 Rate [Posterior Bilateral Throughout] Blood Pressure 154/82 Blood Pressure [Left] O2 Sat by Pulse 95 Oximetry 12/08/17 17:44 Temperature 99.1 F Pulse Rate 106 H Pulse Rate [ Posterior Bilateral Throughout] Respiratory 14 Rate Respiratory Rate [Posterior Bilateral Throughout] Blood Pressure Blood Pressure 135/71 [Left] O2 Sat by Pulse 92 Oximetry - Radiology Data Radiology results: report reviewed Patient x-ray of the chest shows mild CHF. Patient does not have any crackles or does not sound wet in her lungs nor does she have any lower extremity edema. She is no longer short of breath after treatment. On her lung sounds are better with very minimal wheezing and upper lung byrd - Medical Decision Making ED course: Patient here report that her doctor sent her over because she was complaining of difficulty breathing. Chest x-ray revealed mild CHF and Dr. Leahy patient evaluated patient urine screen in and after straining. Evaluated x-ray and patient is not really having CHF exacerbation because her levels without any crackles she is not having any extensive difficulty breathing she has mild increased work of breathing and that is similar to her asthma exacerbation. She says she has some chest tightness associated usually gets with her asthma exacerbation. She has no swelling in her extremities. Patient with HIV positive she said she is okay and does not have any issues with her HIV per patient. Patient denies being on HIV medication. She does have a primary care physician. Patient was given DuoNeb 1 treatment with Solu- Medrol 125 mg IV with some relief of wheezing and cough and chest tightness. She was further given Xopenex 1.25 mg nebulizer, magnesium 2 g IV. Her potassium was 3.2 and magnesium 1.5 so she was given potassium 40 mg by mouth and suspect magnesium will be better after repletion with magnesium IV. Patient says she is feeling a lot better and she is ready to go home. She says she'll schedule an appointment with her primary care even though she said that she didn't like her primary care. I discussed the patient that she is still with anemia and she will need to start back on her iron pill along with stool softener. Patient vital signs are better, no difficulty breathing at present and no chest tightness. Patient discharged home in stable condition with prescription for albuterol nebulizer, prednisone 20 mg by mouth 5 days, Zyrtec , Flonase and Levaquin as she said this is what she takes when she has an infection. Patient was seen by Dr. Leahy during screening and prior to discharge. He evaluated patient and agree was with discharge plan. Critical care attestation.: If time is entered above; I have spent that time in minutes in the direct care of this critically ill patient, excluding procedure time. ED Disposition Clinical Impression: Cough in adult patient, Asymptomatic human immunodeficiency virus [hiv] infection status, Anemia, chronic disease, Electrolyte imbalance Asthma exacerbation attacks Qualifiers: Asthma severity: moderate Asthma persistence: unspecified Qualified Code(s): J45.901 - Unspecified asthma with (acute) exacerbation CHF (congestive heart failure) Qualifiers: Congestive heart failure type: unspecified Congestive heart failure chronicity : unspecified Qualified Code(s): I50.9 - Heart failure, unspecified Disposition: DC-01 TO HOME OR SELFCARE Is pt being admited?: No Does the pt Need Aspirin: No Condition: Stable Instructions: Heart Failure (ED), Asthma (ED), Acute Cough (ED), Upper Respiratory Infection (ED), Hypomagnesemia (ED), Hypokalemia (ED), Anemia (ED) , Iron Rich Diet (ED) Additional Instructions: Please follow up with her primary care physician call tomorrow to schedule appointment. If you are condition worsens or return to the emergency room Take albuterol nebulizer every 4-6 hours as needed for wheezing, cough. Take antibiotic and other medication as prescribed Your magnesium and potassium was low today so he will need to take some extra potassium for a couple days and you're given magnesium in emergency room Please start taking your iron pills as prescribed and take with Colace to prevent constipation Prescriptions: ALBUTEROL NEB's [Proventil 0.083% NEBS] 2.5 mg IH Q4-6H 30 Days nebu Cetirizine HCl [ZyrTEC] 10 mg PO QDAY 10 Days #10 capsule Docusate Sodium [Colace] 100 mg PO TID 30 Days #90 capsule Ferrous Sulfate [Feosol 325 MG tab] 325 mg PO TID 30 Days #90 tablet Fluticasone [Flonase] 1 spray NS QDAY 1 Days #1 bottle Levofloxacin [Levaquin] 750 mg PO QDAY 10 Days #10 tablet Magnesium Oxide [Mag-Ox] 400 mg PO QDAY 2 Days #2 tablet Potassium Chloride [K-Dur] 20 meq PO BID 2 Days #4 tab predniSONE [Deltasone] 20 mg PO QDAY 5 Days #5 tab traMADol [Ultram 50 MG tab] 50 mg PO Q6HR PRN #14 tablet PRN Reason: Pain Referrals: follow-up with your, primary care physician [Other] - 12/09/17 Forms: Work/School Release Form(ED)
[2017-12-08] MEDS ORDERED: XOPENEX IH ONE (15:48)
[2017-12-08] MEDS ORDERED: MAGNESIUM SULFATE 2GM/50ML 2 GM/50 ML BAG IV ONE (15:48)
[2017-12-08] MEDS ORDERED: K-DUR PO ONE (15:50)
[2017-12-08 17:45] VITALS: BP 135/71
== END 2017-12-08 19:42 | disposition home or self-care (01) ==
LOC: ED 11:22
DX: I11.0 Hypertensive heart disease with heart failure (principal); I50.9 Heart failure, unspecified; G43.909 Migraine, unspecified, not intractable, without status migrainosus; D64.9 Anemia, unspecified; J45.901 Unspecified asthma with (acute) exacerbation; Z87.891 Personal history of nicotine dependence
CPT/HCPCS: 36415; 71046; 80048; 83735; 85025; 94640; 94644; 96365; 96372; 99284; J2930; J3475

== ENCOUNTER 2018-02-28 07:59 | Outpatient (CLI) | payer MEDICAID ==
[2018-02-28 08:43] LABS: Hematocrit 34.9 % (30.3-42.9); Hemoglobin 11.6 gm/dl (10.1-14.3); Mean Corpuscular HGB Conc 33 % (30-34); Mean Corpuscular Hemoglobin 33 pg (28-32); Mean Corpuscular Volume 101 fl (79-97); Platelet Count 194 K/mm3 (140-440); Red Blood Count 3.45 M/mm3 (3.65-5.03); Red Cell Distribution Width 17.4 % (13.2-15.2)
[2018-02-28 08:46] LABS: Alanine Aminotransferase 17 units/L (7-56); Albumin 3.9 g/dL (3.9-5); BUN/Creatinine Ratio 15; Blood Urea Nitrogen 9 mg/dL (7-17); Calcium 8.8 mg/dL (8.4-10.2); Hemolysis Index 28
--- NOTE | 2018-02-28 08:57 | XRay Report ---
ROUTINE CHEST, TWO VIEWS: HISTORY: Mediastinal adenopathy. Mild cardiomegaly and vascular congestion has resolved since 12/08/17. The lungs are clear. There is mild prominence of the hilar region which could represent mild hilar adenopathy. No pleural effusion or pneumothorax. Normal bony structures. IMPRESSION: Essentially unremarkable chest x-ray. Questionable mild bilateral hilar prominence as described.
--- NOTE | 2018-02-28 10:05 | Cat Scan Report ---
CT CHEST WITH CONTRAST: HISTORY: Mediastinal adenopathy. COMPARISON: CT angiogram chest dated 10/13/17. TECHNIQUE: Helical CT in 1.25mm intervals following IV contrast. Sagittal and coronal reformatted images. FINDINGS: Thyroid gland: Normal. Tracheobronchial tree: Normal. Esophagus: Normal. Heart: Normal. Pericardium: Normal. Mediastinum: Mildly enlarged paratracheal, right hilar and subcarinal lymph nodes are again identified although they have decreased in size by approximately 20% since the comparison exam. For instance, a right hilar lymph node has decreased from 2.0 cm to 1.6 cm. A subcarinal lymph node has decreased from 1.8 cm to 1.6 cm. Enlarged lymph nodes in both axilla appear unchanged in size and number. No new enlarged lymph nodes are appreciated. Lung Bauer: Normal. Pleural Spaces: Normal. Musculoskeletal: Normal. IMPRESSION: Minimal improvement in the mediastinal adenopathy since the CT h.s. dated 10/13/17. No significant changes in the axillary lymphadenopathy.
== END 2018-02-28 08:00 | disposition home or self-care (01) ==
LOC: CT 07:59
PROVIDERS: ATTEND Internal Medicine
DX: R91.8 Other nonspecific abnormal finding of lung field (principal); R59.9 Enlarged lymph nodes, unspecified; I10 Essential (primary) hypertension
CPT/HCPCS: 36415; 71046; 71260; 80053; 82164; 82785; 85027; Q9967

== ENCOUNTER 2018-03-06 08:01 | Day surgery (SDC) | payer MEDICAID ==
[2018-03-06 09:17] LABS: Hematocrit 34.6 % (30.3-42.9); Hemoglobin 11.2 gm/dl (10.1-14.3); Mean Corpuscular HGB Conc 33 % (30-34); Mean Corpuscular Hemoglobin 32 pg (28-32); Mean Corpuscular Volume 100 fl (79-97); Platelet Count 192 K/mm3 (140-440); Red Blood Count 3.47 M/mm3 (3.65-5.03); Red Cell Distribution Width 16.4 % (13.2-15.2)
[2018-03-06 09:28] LABS: INR 0.98 (0.87-1.13)
[2018-03-06 09:29] LABS: Partial Thromboplastin Time 36.3 Sec. (24.2-36.6)
[2018-03-06] MEDS ORDERED: SUBLIMAZE IV NR (10:46)
[2018-03-06] MEDS ORDERED: VERSED IV NR (10:46)
[2018-03-06] MEDS ORDERED: VERSED IV ONE (10:47)
[2018-03-06] MEDS ORDERED: SUBLIMAZE ONE (10:48)
[2018-03-06 13:20] VITALS: BP 115/76
--- NOTE | 2018-03-06 14:49 | Cat Scan Report ---
CT BIOPSY LYMPH NODE SUPERFICIAL: HISTORY: Enlarged lymph nodes. DESCRIPTION OF PROCEDURE: Informed consent was obtained. Sterile technique was utilized. Conscious sedation was accomplished with Versed and fentanyl. The patient was sedated for 20 minutes. Independent cardiorespiratory monitoring by RN. Intra-observer time of [address] guidance, a 17-gauge introducer needle was advanced to the leading edge of a 3.4 x 1.6 cm lymph node in the left axillary chain. 3 separate 1.2 cm 18-gauge core biopsies were obtained for pathology who was present in the CT suite to handle the sample. No complications. IMPRESSION: Successful CT-guided biopsy of left axillary adenopathy.
== END 2018-03-06 13:40 | disposition home or self-care (01) ==
LOC: CATHLABREC 08:01
PROVIDERS: ATTEND Internal Medicine
DX: R59.1 Generalized enlarged lymph nodes (principal); I10 Essential (primary) hypertension; J45.909 Unspecified asthma, uncomplicated; Z79.01 Long term (current) use of anticoagulants
CPT/HCPCS: 36415; 38505; 77012; 85027; 85610; 85730; 88173; 88184; 88185; 88305; 88333; J2250; J3010

== ENCOUNTER 2018-04-04 12:00 | Emergency (ER) | payer MEDICAID ==
[2018-04-04 12:36] VITALS: BP 140/87
--- NOTE | 2018-04-04 13:25 | XRay Report ---
ROUTINE CHEST, TWO VIEWS: HISTORY: shortness of fluid. The trachea, heart, mediastinal contour, lung byrd and bony thorax are unremarkable. IMPRESSION: Unremarkable chest x-ray.
[2018-04-04 13:41] LABS: Basophils % (Auto) 0.6 % (0.0-1.8); Eosinophils % (Auto) 1.4 % (0.0-4.3); Hematocrit 32.7 % (30.3-42.9); Hemoglobin 11.1 gm/dl (10.1-14.3); Lymphocytes # (Auto) 0.4 K/mm3 (1.2-5.4); Lymphocytes % (Auto) 10.6 % (13.4-35.0); Mean Corpuscular HGB Conc 34 % (30-34); Mean Corpuscular Hemoglobin 33 pg (28-32); Mean Corpuscular Volume 98 fl (79-97); Monocytes # (Auto) 0.4 K/mm3 (0.0-0.8); Monocytes % (Auto) 11.3 % (0.0-7.3); Platelet Count 188 K/mm3 (140-440); Red Blood Count 3.33 M/mm3 (3.65-5.03); Red Cell Distribution Width 16.5 % (13.2-15.2)
[2018-04-04 13:45] LABS: BUN/Creatinine Ratio 13; Blood Urea Nitrogen 9 mg/dL (7-17); Calcium 9.9 mg/dL (8.4-10.2); Hemolysis Index 18
== END 2018-04-04 14:57 | disposition left against medical advice (07) ==
LOC: ED 12:00
DX: R06.00 Dyspnea, unspecified (principal); R07.9 Chest pain, unspecified; E11.9 Type 2 diabetes mellitus without complications; J45.909 Unspecified asthma, uncomplicated; G43.909 Migraine, unspecified, not intractable, without status migrainosus; I10 Essential (primary) hypertension; F32.9 Major depressive disorder, single episode, unspecified; D64.9 Anemia, unspecified; Z88.0 Allergy status to penicillin; Z88.6 Allergy status to analgesic agent; Z91.013 Allergy to seafood; Z87.891 Personal history of nicotine dependence; Z53.21 Procedure and treatment not carried out due to patient leaving prior to being seen by health care provider
CPT/HCPCS: 36415; 71046; 80048; 84295; 84484; 85025; 93005; 93010

== ENCOUNTER 2018-06-30 08:18 | Emergency (ER) | payer MEDICAID ==
[2018-06-30] MEDS ORDERED: ZOFRAN IV ONE (10:53)
[2018-06-30] MEDS ORDERED: NACL 0.9% 1000 ML 1,000 ML IV ONE (10:53)
[2018-06-30] MEDS ORDERED: CATAPRES PO ONE (10:53)
[2018-06-30] MEDS ORDERED: MORPHINE IV ONE (10:55)
--- NOTE | 2018-06-30 10:57 | Emergency Department Report ---
Blank Doc - Documentation Documentation: Patient is 38] female past medical history of migraines as well as possible hypertension. Patient is complaining of right-sided headache that goes from the frontal region and a wrap around to the back of the neck. Patient states this headache is been present for approximately one week and is associated with light sensitivity and noise sensitivity as well as nausea. Patient denies any fevers chills cough congestion. Patient does state she has some very mild diarrhea. Focused physical exam patient has no neck stiffness lungs clear to auscultation heart tones are normal abdomen soft and nontender. Patient will be sent to treatment room for IV fluids and this was symptomatic relief. Patient's temperature was 99.5 urinalysis has been ordered to rule out UTI. Patient be reassessed.
[2018-06-30] MEDS ORDERED: NORCO 7.5/325 PO ONE (12:31)
[2018-06-30 12:44] LABS: HCG Qualitative,Urine Negative (Negative)
[2018-06-30 12:50] LABS: Bacteria,Urine 2+ /HPF (Negative); Bilirubin,Urine NEG (Negative); Blood,Urine SM (Negative); Color,Urine Yellow (Yellow); Mucus,Urine FEW /HPF
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
[2018-06-30 13:53] VITALS: BP 145/72
== END 2018-06-30 13:51 | disposition home or self-care (01) ==
LOC: ED 08:18
DX: G43.909 Migraine, unspecified, not intractable, without status migrainosus (principal); F43.0 Acute stress reaction; I10 Essential (primary) hypertension; F32.9 Major depressive disorder, single episode, unspecified; J45.909 Unspecified asthma, uncomplicated; Z88.0 Allergy status to penicillin; Z91.013 Allergy to seafood; Z88.6 Allergy status to analgesic agent
CPT/HCPCS: 81001; 81025; 87086; 96361; 96374; 96375; 99283; J2270; J2405; J7030

== ENCOUNTER 2018-08-04 08:45 | Emergency (ER) | payer MEDICAID ==
[2018-08-04] MEDS ORDERED: REGLAN IV ONE (09:40)
[2018-08-04] MEDS ORDERED: TORADOL ONE (09:40)
[2018-08-04] MEDS ORDERED: BENADRYL IV ONE (09:40)
--- NOTE | 2018-08-04 09:42 | Emergency Department Report ---
ED Lower Extremity HPI - General Chief Complaint: Extremity Injury, Lower Stated Complaint: (R) KNEE PAIN/HEADACHE Time Seen by Provider: 08/04/18 09:26 Source: patient Mode of arrival: Ambulatory Limitations: Physical Limitation - History of Present Illness Initial Comments: This is a 38-year-old -[place] female who presents with right knee pain to me. Patient reports knee is swollen and very painful. She is unable to be and right knee. Patient states she used an old knee brace from left knee replacement to help stabilize. She has also taken Tylenol with no improvement of symptoms. Patient reports pain is 10 out of 10 on pain scale and worse with movement or touch. She denies injury. She also complains of headache since Tuesday causing nausea and vomiting. Patient reports headache lasts for 10-12 hours. She denies . Patient reports last period was 05/26/2014. She is currently going through menopause. Patient denies recent injury, fever, numbness or tingling, erythema, vertigo, or visual changes. MD Complaint: knee injury (right knee) Onset/Timin -: week(s) Injury: Knee: Right Type of Injury: unknown Place: home Severity: moderate Severity scale (0 -10): 10 Improves With: nothing Worsens With: weight bearing, movement, palpation Other Symptoms: nausea/vomiting Associated Symptoms: swelling, able to partially bear weight, ambulatory. denies: snap/pop sensation, numbness, tingling, unable to bear weight Treatments Prior to Arrival: splint (knee immobilizer), other (Tylenol) - Related Data Home Medications Medication Instructions Recorded Confirmed Last Taken ALBUTEROL Inhaler (OR & NICU) 2 puff IH QID PRN 04/15/16 03/06/18 03/06/18 [ProAir HFA Inhaler] Losartan [Cozaar] 100 mg PO QDAY 03/06/18 03/06/18 03/06/18 Previous Rx's Medication Instructions Recorded Last Taken Type levETIRAcetam [Keppra TAB] 1,000 mg PO BID #60 tab 05/24/17 03/05/18 Rx ALBUTEROL NEB's [Proventil 0.083% 2.5 mg IH Q4-6H 30 Days nebu 12/08/17 Rx NEBS] Codeine/Butalbital/ASA/Caffein 1 each PO Q8H PRN #15 capsule 06/30/18 Unknown Rx [Fiorinal with Codeine #3 Cap] Promethazine [Phenergan TAB] 25 mg PO Q6HR PRN #20 tab 06/30/18 Unknown Rx diazePAM TAB [Valium] 2 mg PO Q8H PRN #12 tablet 06/30/18 Unknown Rx Acetaminophen [Tylenol Arthritis] 650 mg PO Q8H PRN #12 tablet.er 08/04/18 Unknown Rx Butalb/Acetamin/Caff 50-325-40 1 tab PO Q8HR PRN #8 tablet 08/04/18 Unknown Rx [Fioricet] Allergies Allergy/AdvReac Type Severity Reaction Status Date / Time aspirin Allergy Hives Verified 08/04/18 09:40 ibuprofen [From Motrin] Allergy Hives Verified 08/04/18 09:40 Penicillins Allergy Hives Verified 08/04/18 09:40 shellfish derived Allergy Swelling,BREAK Verified 08/04/18 09:40 OUT WITH SCALES ED Review of Systems ROS: Stated complaint: (R) KNEE PAIN/HEADACHE Other details as noted in HPI Constitutional: denies: chills, fever Respiratory: denies: cough, shortness of breath, wheezing Cardiovascular: denies: chest pain, palpitations Gastrointestinal: denies: abdominal pain, nausea, diarrhea Musculoskeletal: joint swelling (right knee), arthralgia (right knee). denies: back pain Skin: denies: rash, lesions Neurological: headache. denies: weakness, numbness, paresthesias, vertigo Psychiatric: denies: anxiety, depression ED Past Medical Hx - Past Medical History Hx Hypertension: Yes Hx Diabetes: No Hx Headaches / Migraines: Yes (hx migraines) Hx Seizures: Yes Hx Psychiatric Treatment: Yes (depression) Hx Asthma: Yes Hx HIV: No Additional medical history: Anemia - Surgical History Additional Surgical History: right knee surgery, b/l foot surgery several years ago. foot surgery 12/2015 - Social History Smoking Status: Never Smoker Substance Use Type: None - Medications Home Medications: Home Medications Medication Instructions Recorded Confirmed Last Taken Type ALBUTEROL Inhaler (OR & NICU) 2 puff IH QID PRN 04/15/16 03/06/18 03/06/18 History [ProAir HFA Inhaler] levETIRAcetam [Keppra TAB] 1,000 mg PO BID #60 tab 05/24/17 03/06/18 03/05/18 Rx ALBUTEROL NEB's [Proventil 0.083% 2.5 mg IH Q4-6H 30 Days nebu 12/08/1703/06/18 Rx NEBS] Losartan [Cozaar] 100 mg PO QDAY 03/06/18 03/06/18 03/06/18 History Codeine/Butalbital/ASA/Caffein 1 each PO Q8H PRN #15 capsule 06/30/18 Unknown Rx [Fiorinal with Codeine #3 Cap] Promethazine [Phenergan TAB] 25 mg PO Q6HR PRN #20 tab 06/30/18 Unknown Rx diazePAM TAB [Valium] 2 mg PO Q8H PRN #12 tablet 06/30/18 Unknown Rx Acetaminophen [Tylenol Arthritis] 650 mg PO Q8H PRN #12 tablet.er 08/04/18 Unknown Rx Butalb/Acetamin/Caff 50-325-40 1 tab PO Q8HR PRN #8 tablet 08/04/18 Unknown Rx [Fioricet] ED Physical Exam - General Limitations: Physical Limitation General appearance: alert, in no apparent distress - Head Head exam: Present: atraumatic, normocephalic - Eye Eye exam: Present: normal appearance. Absent: nystagmus - ENT ENT exam: Present: mucous membranes moist - Respiratory Respiratory exam: Present: normal lung sounds bilaterally. Absent: respiratory distress - Cardiovascular Cardiovascular Exam: Present: regular rate, normal rhythm. Absent: systolic murmur, diastolic murmur, rubs, gallop - GI/Abdominal GI/Abdominal exam: Present: soft, normal bowel sounds - Expanded Lower Extremity Exam Right Hip exam: Present: normal inspection, full ROM Upper Leg exam: Present: normal inspection, full ROM Knee exam: Present: tenderness, swelling, crepidus, effusion, pain w/ pronation/ supination, full knee extension. Absent: full ROM (limit to range of motion secondary pain and swelling), abrasion, laceration, ecchymosis, deformity, dislocation, erythema, posterior draw sign Lower Leg exam: Present: normal inspection, full ROM Ankle exam: Present: normal inspection, full ROM Foot/Toe exam: Present: normal inspection, full ROM Neuro vascular tendon exam: Present: no vascular compromise Gait: Positive: observed and limited by pain - Neurological Exam Neurological exam: Present: alert, oriented X3 - Psychiatric Psychiatric exam: Present: normal affect, normal mood - Skin Skin exam: Present: warm, dry, intact, normal color. Absent: rash ED Course Vital Signs 08/04/18 08/04/18 08/04/18 08:59 11:56 12:56 Temperature 89.9 F L Pulse Rate 111 H Respiratory 16 18 18 Rate Blood Pressure 154/114 Blood Pressure [Left] O2 Sat by Pulse 96 Oximetry 08/04/18 08/04/18 14:03 14:27 Temperature Pulse Rate 107 H 96 H Respiratory 16 18 Rate Blood Pressure Blood Pressure 152/85 [Left] O2 Sat by Pulse 100 97 Oximetry ED Lower Extremity MDM - Radiology Data Radiology results: report reviewed, image reviewed FINAL REPORT EXAM: XR KNEE 1-2V RT HISTORY: right knee pain TECHNIQUE: Right knee 2 views PRIORS: None. FINDINGS: No fracture is identified. No dislocation seen. No evidence of joint effusion. Patella demonstrates normal positioning. No acute bony abnormality identified. IMPRESSION: Negative knee series - Medical Decision Making Patient was examined by me. Patient is nontoxic appearing in no acute distress. Blood pressure elevated on arrival. Patient given Tylenol, Benadryl, Reglan, Fioricet, and Decadron while in the emergency room. Obtained a x-ray of right knee. X-ray report reviewed and negative. Attending reviewed image, no acute findings. Patient informed of results. Start Fioricet for migraine headache and Tylenol for muscle strain of right knee. Plan discussed with patient to discharge home and treat outpatient. He agrees with ER plan. Patient discharged home in stable condition. Referral to orthopedic surgeon or continuous care. Follow up with PCP in 2-3 days. Critical care attestation.: If time is entered above; I have spent that time in minutes in the direct care of this critically ill patient, excluding procedure time. ED Disposition Clinical Impression: Nausea alone Right knee pain Qualifiers: Chronicity: acute Qualified Code(s): M25.561 - Pain in right knee Muscle strain of right knee Qualifiers: Encounter type: initial encounter Qualified Code(s): S86.911A - Strain of unspecified muscle(s) and tendon(s) at lower leg level, right leg, initial encounter Migraine Qualifiers: Migraine type: without aura Status migrainosus presence: with status migrainosus Intractability: not intractable Qualified Code(s): G43.001 - Migraine without aura, not intractable, with status migrainosus Disposition: TO HOME OR SELFCARE Is pt being admited?: No Does the pt Need Aspirin: No Condition: Stable Instructions: Muscle Strain (ED), Migraine Headache (ED), Arthralgia (ED) Additional Instructions: Rest Use ice or heat on affected area for 20 minutes and off for 2 hours. Take medication at start of headache. Moderate caffeine intake. Eat at scheduled times or 3 meals a day with snacks. Follow up with primary care provider in 24-72 hours. Prescriptions: Acetaminophen [Tylenol Arthritis] 650 mg PO Q8H PRN #12 tablet.er PRN Reason: Pain , Severe (7-10) Butalb/Acetamin/Caff 50-325-40 [Fioricet] 1 tab PO Q8HR PRN #8 tablet PRN Reason: Headache Referrals: [facility] [Outside] - 3-5 Days [facility] [Outside] - 3-5 Days [facility] [Outside] - 3-5 Days Time of Disposition: 13:53 Print Language: NEPALI
[2018-08-04] MEDS ORDERED: TYLENOL PO ONE (11:48)
[2018-08-04] MEDS ORDERED: FIORICET PO ONE (13:26)
[2018-08-04] MEDS ORDERED: DECADRON IM ONE (13:54)
[2018-08-04] MEDS ORDERED: DECADRON IV ONE (13:55)
[2018-08-04 14:05] VITALS: BP 152/85
--- NOTE | 2018-08-04 17:08 | XRay Report ---
FINAL REPORT EXAM: XR KNEE 1-2V RT HISTORY: right knee pain TECHNIQUE: Right knee 2 views PRIORS: None. FINDINGS: No fracture is identified. No dislocation seen. No evidence of joint effusion. Patella demonstrates normal positioning. No acute bony abnormality identified. IMPRESSION: Negative knee series
== END 2018-08-04 14:28 | disposition home or self-care (01) ==
LOC: ED 08:45
DX: S76.911A Strain of unspecified muscles, fascia and tendons at thigh level, right thigh, initial encounter (principal); G43.909 Migraine, unspecified, not intractable, without status migrainosus; I10 Essential (primary) hypertension; J45.909 Unspecified asthma, uncomplicated; Z88.6 Allergy status to analgesic agent; Z88.0 Allergy status to penicillin; Z91.013 Allergy to seafood; X58.XXXA Exposure to other specified factors, initial encounter; Y93.89 Activity, other specified; Y92.89 Other specified places as the place of occurrence of the external cause; Y99.8 Other external cause status
CPT/HCPCS: 73560; 96374; 96375; 99283; J1100; J1200; J2765; J1885